=== PATIENT | male | born 1975 | race African-American/Black ===

== ENCOUNTER 2016-06-09 01:37 | Inpatient (IN) | payer OTHER ==
[~2016-06-09] VITALS: Ht 193 cm; Wt 123.4 kg
[2016-06-09 03:00] LABS: HEMOGLOBIN 17.9 gm/dl (14.0-17.5); RED BLOOD COUNT 6.07 M/UL (4.20-5.50)
[2016-06-09 03:29] LABS: BUN/CREATININE RATIO 11 (0-10)
[2016-06-09] MEDS ORDERED: LOSARTAN POTASS25 MG PO (06:15)
[2016-06-09] MEDS ORDERED: NORVASC 5 MG TAB5 MG PO (06:15)
[2016-06-09] MEDS ORDERED: HYDROCHLOROTHIA25 MG PO (06:15)
[2016-06-09] MEDS ORDERED: TESTOSTERO200 MG/1 M IM (16:28)
[2016-06-10] MEDS ORDERED: LIPITOR TAB 2020 MG PO (12:26)
[2016-06-10] MEDS ORDERED: ASPIRIN CHEWABL81 MG PO (12:26)
[2016-06-10] MEDS ORDERED: PLAVIX 75 MG TA75 MG PO (12:27)
[2016-06-10] MEDS ORDERED: LOPRESSOR 25 MG25 MG PO (12:27)
[2016-06-10] MEDS ORDERED: PEPCID20 MG PO (12:28)
[2016-06-10] MEDS ORDERED: NITROSTAT0.4 MG SL (12:29)
== END 2016-06-10 13:25 | disposition home or self-care (01) | DRG 247 ==
LOC: ER1 01:37 → ZEROF 04:34 → PROG CARE 15:41
PROVIDERS: Emergency Medicine; ADMIT Internal Medicine
PROC: 027034Z Dilation of Coronary Artery, One Artery with Drug-eluting Intraluminal Device, Percutaneous Approach (ICD-10-PCS; principal; 2016-06-09)
PROC: 4A023N8 Measurement of Cardiac Sampling and Pressure, Bilateral, Percutaneous Approach (ICD-10-PCS; 2016-06-09)
DX: I21.4 Non-ST elevation (NSTEMI) myocardial infarction (principal); I20.9 Angina pectoris, unspecified; I10 Essential (primary) hypertension; E66.9 Obesity, unspecified; Z82.49 Family history of ischemic heart disease and other diseases of the circulatory system; K76.0 Fatty (change of) liver, not elsewhere classified; Z87.828 Personal history of other (healed) physical injury and trauma; Z98.890 Other specified postprocedural states; Z88.0 Allergy status to penicillin; Z88.5 Allergy status to narcotic agent; Z79.899 Other long term (current) drug therapy; Z79.82 Long term (current) use of aspirin; Z79.02 Long term (current) use of antithrombotics/antiplatelets; Z68.33 Body mass index [BMI] 33.0-33.9, adult
CPT/HCPCS: 36415; 71020; 80053; 80061; 82550; 82553; 83036; 83690; 83735; 83874; 84484; 85025; 85347; 85379; 85610; 85730; 93005; 96374; 99291; C1725; C1769; C1874; C1887; C1894; C9600; J0583; J1644; J2250; J3010; J7030; J7040; Q9963

== ENCOUNTER → 2020-06-26 | Outpatient (CLI) | payer OTHER ==
[~2020-06-26] MED LIST: AMLODIPINE BESY10 MG PO; ASPIRIN CHEWABL81 MG PO; BENICAR40 MG PO; HYDROCHLOROTH12.5 MG PO; HYDROCHLOROTHIA25 MG PO; ISOSORBIDE MONO30 MG PO; LIPITOR TAB 2020 MG PO; LOPRESSOR 25 MG25 MG PO; LOSARTAN POTASS25 MG PO; METOPROLOL SUCC50 MG PO; NITROSTAT0.4 MG SL; NORVASC 5 MG TAB5 MG PO; OMEPRAZOLE20 MG PO; PEPCID20 MG PO; PLAVIX 75 MG TA75 MG PO; RANEXA500 MG PO; TESTOSTERO200 MG/1 M IM; VITAMIN D
== END ==
LOC: HEART 5 07:47
DX: I10 Essential (primary) hypertension (principal); I20.9 Angina pectoris, unspecified; R93.1 Abnormal findings on diagnostic imaging of heart and coronary circulation
CPT/HCPCS: 78452; 93306; A9502

== ENCOUNTER → 2020-07-03 | Outpatient (CLI) | payer OTHER ==
[2020-07-03 12:58] LABS: RED BLOOD COUNT 5.23 M/UL (4.20-5.50); WHITE BLOOD COUNT 5.7 K/UL (4.5-11.0)
== END ==
LOC: LAB 11:28
PROVIDERS: Internal Medicine Interventional Cardiology
DX: I10 Essential (primary) hypertension (principal); E78.5 Hyperlipidemia, unspecified; I25.119 Atherosclerotic heart disease of native coronary artery with unspecified angina pectoris; R94.39 Abnormal result of other cardiovascular function study
CPT/HCPCS: 36415; 80048; 85025; 85610; 85730; 93005

== ENCOUNTER → 2020-07-15 | Outpatient (CLI) | payer OTHER | LOC: CATH 10:53 | DX: I25.10 Atherosclerotic heart disease of native coronary artery without angina pectoris (principal); E78.5 Hyperlipidemia, unspecified; Z20.822 Contact with and (suspected) exposure to COVID-19 | CPT/HCPCS: 99152; 99153; C1769; C1894; J1644; J2250; J3010; Q9967; U0002 ==

== ENCOUNTER → 2020-10-09 | Outpatient (CLI) | payer OTHER | LOC: HEART 5 07:44 | DX: I10 Essential (primary) hypertension (principal); I07.1 Rheumatic tricuspid insufficiency | CPT/HCPCS: 93306 ==